=== PATIENT | male | born 1980 | race Caucasian/White ===

== ENCOUNTER 2020-03-14 08:59 | Day surgery (SDC) | payer OTHER ==
[2020-03-08 11:39] LABS: BASOPHIL % 0.5 % (0-2); PLATELET COUNT 180 x10^3mcL (130-400); RED CELL DISTRIBUTION WIDTH 13.6 % (11.5-14.5)
[2020-03-08 11:52] LABS: ALKALINE PHOSPHATASE 83 U/L (46-116); ALT/SGPT 82 U/L (16-63); AST/SGOT 33 U/L (15-37); BILIRUBIN TOTAL 0.98 mg/dL (0.20-1.00); CALCIUM 9.5 mg/dL (8.5-10.1); CHLORIDE SERUM 104 mmol/L (98-107); CREATININE SERUM 0.9 mg/dL (0.7-1.3); GFR1 > 60 mL/min; GLUCOSE SERUM 98 mg/dL (74-106); SODIUM SERUM 139 mmol/L (136-145); TOTAL PROTEIN, SERUM 7.4 g/dL (6.4-8.2)
[2020-03-08 11:59] LABS: CARBON DIOXIDE 30.3 mmol/L (21-32)
[~2020-03-14] VITALS: Ht 177.8 cm; Wt 95.2 kg
[2020-03-14 09:29] VITALS: BP 122/87
[2020-03-14 16:40] VITALS: BP 120/85
== END 2020-03-14 16:30 | disposition home or self-care (01) ==
LOC: DS 08:59 → OR 11:00 → DS 16:30
PROVIDERS: Surgery
DX: K80.10 Calculus of gallbladder with chronic cholecystitis without obstruction (principal)
CPT/HCPCS: J0694; J2250; J2405; J2704; J2710; J3010; J3490; J7030; J7120